=== PATIENT | male | born 1995 | race Caucasian/White ===

== ENCOUNTER 2019-02-20 09:33 | Emergency (ER) | payer BC, SELFPAY ==
[2019-02-20 09:34] VITALS: BP 114/79; PULSE 91; RESP 16; TEMP 36.7; O2SAT 100; BMI 19.1
--- NOTE | 2019-02-20 09:59 | ED.VISSUMM ---
- ER Visit Summary Date of Service: 02/20/19 Chief Complaint: [Left groin pain] History of Present Illness: The patient is a 23 M [resents to the emergency department with pain in his left groin is for about a week and a half ago. Patient rates his pain a 6 out of 10. Patient states that initially was mild and worse with certain movements but has now worsened. Patient denies any injury or trauma that he can recall. 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 He does not recall the exact time of injury. Patient states pain is worse with external rotation of his hip. Patient denies any urinary symptoms. Denies any fever. Denies any vomiting. He denies any lumps or masses.] Physical Examination: [HEENT-PERRLA, EOMI. Cranial nerves II through XII grossly intact. TMs clear. Mucous membranes moist. No adenopathy. Cardiovascular-regular rate and rhythm without murmur or ectopy Lungs-clear to auscultation, chest wall stable without crepitus or subcu emphysema Abdomen-normoactive bowel sounds, soft, nontender, no rebound or rigidity, no peritoneal signs. exam-circumcised male-testicles both descended and nontender. Normal cremasteric reflexes. No hernias palpated in the inguinal canal. Extremities-intact ?4, normal range of motion, normal pulses, atraumatic. Left groin-no soft tissue swellings or masses noted. No hernias noted. Patient does have some tenderness over the abductor tendons and over the area of the inguinal ligament that is mild. Patient has pain with external rotation at the hip.] Test Results: [None indicated] Emergency Department Course and Treatment: [Patient will be given a prescription for naproxen and referral to orthopedics for follow-up within next 5 to 7 days.] Treatment Plan: [Follow-up with orthopedics in 5 to 7 days.] Disposition: [Discharged home in stable condition] Impression: [Left groin strain] This note was generated with [employer] software. It may contain incorrect words, spelling, and punctuation that were not noted in review of the chart prior to signing ED Disposition - Plan for ED Patient: Referrals: [facility] Doctor,Out of [Primary Care Provider] -
--- NOTE | 2019-02-20 10:02 | ED.DEP ---
ED Disposition - Plan for ED Patient: Instructions: Groin Strain Prescriptions: Naproxen [Naprosyn] 500 mg PO BID PRN #20 tab Prescription Printed Referrals: [facility],Out of [Primary Care Provider] - Curt Figueroa DO [STAFF PHYSICIAN] - 5-7 Days
--- NOTE | 2019-02-20 10:03 | ED.DEP ---
ED Disposition - Plan for ED Patient: Instructions: Groin Strain Prescriptions: Naproxen [Naprosyn] 500 mg PO BID PRN #20 tab Prescription Printed Referrals: Curt Figueroa DO [STAFF PHYSICIAN] - 5-7 Days [facility] Doctor,Out of [Primary Care Provider] -
== END 2019-02-20 10:36 | disposition home or self-care (01) ==
LOC: ED 10:28
PROVIDERS: Emergency Provider Emergency Medicine
DX: S39.011A Strain of muscle, fascia and tendon of abdomen, initial encounter (principal); X58.XXXA Exposure to other specified factors, initial encounter; Y93.9 Activity, unspecified; Y92.9 Unspecified place or not applicable; Z87.891 Personal history of nicotine dependence
CPT/HCPCS: 99282

== ENCOUNTER → 2024-12-18 | Outpatient (CLI) | payer SELFPAY ==
[2024-12-18 18:49] LABS: Hematocrit 38.9 % (40-54); Hemoglobin 13.1 g/dL (13.0-16.5); Immature Granulocytes Count 0.010 X10^3/uL (0.0-0.0); Mean Corp Hgb Conc 33.7 g/dL (32-36); Mean Corpuscular Volume 90.9 fL (80-94); Mean Platelet Vol. 12.6 fl (6.2-12.0); NRBC Flagged by Analyzer 0 % (0-5); Platelet Count 189 K/mm3 (150-450); RBC Distribution Width CV 12.6 % (11.6-14.6); RBC Distribution Width SD 41.3 fl (35.1-43.9); Red Blood Count 4.28 M/mm3 (4.6-6.2); White Blood Count 6.2 K/mm3 (4.4-11.0)
[2024-12-18 19:01] LABS: PTHIN 37 pg/mL (11-61)
[2024-12-18 19:22] LABS: AST(SGOT) 24 U/L (<=37); Alanine Aminotransfer ALT/SGPT 6 U/L (<=46); Albumin, Serum 4.5 g/dL (3.5-5.0); Alkaline Phosphatase 91 U/L (40-129); Anion Gap 13 (5-15); BUN 10 mg/dL (4-19); BUN/Creat Ratio 10.8 RATIO (10-20); Bilirubin, Direct 0.39 mg/dL (0.00-0.30); Calcium 9.4 mg/dL (7.6-11.0); Calcium,Total 9.4 mg/dL (7.6-11.0); Carbon Dioxide 23.3 mmol/L (21.0-32.0); Chloride 102 mmol/L (98-108); Globulin 2.2 g/dL (2.2-4.2); Glucose 99 mg/dL (70-99); Potassium 4.4 mmol/L (3.3-5.1); Vitamin D,25 Hydroxy 43.2 ng/mL (30-100)
== END | disposition home or self-care (01) ==
LOC: MTLAB 16:02
PROVIDERS: Referring Provider Orthopaedic Surgery Sports Medicine; Visit Provider Orthopaedic Surgery Sports Medicine
DX: M84.321A Stress fracture, right humerus, initial encounter for fracture (principal)
CPT/HCPCS: 36415; 80053; 82248; 82306; 82310; 83970; 84075; 84080; 84100; 84402; 84403; 84443; 85025

== ENCOUNTER 2024-12-26 07:48 | Outpatient (CLI) | payer BC, SELFPAY ==
--- NOTE | 2024-12-26 08:00 | BD_ITS ---
EXAM: DEXA BONE DENSITY STUDY 12/26/2024 REASON FOR EXAM: ATYPICAL STRESS FRACTURE M,29 y/o atypical stress fracture. TECHNIQUE: DEXA BONE DENSITY STUDY COMPARISON: None FINDINGS: BMD and Z-SCORES Lumbar spine: 0.853 g/cm2, Z-Score -2.2 L1 through L4 Left femoral neck: 0.783 g/cm2, Z-Score -1.1 Femoral neck comparison data not recommended for monitoring change. Left total hip: 0.861 g/cm2, Z-Score -1.1 Right femoral neck: 0.804 g/cm2, Z-Score -0.9 Femoral neck comparison data not recommended for monitoring change. Right total hip: 0.840 g/cm2, Z-Score -1.3 BD/Dexa Bone Density Study IMPRESSION: Osteopenia. Recommend follow-up, if clinically warranted. Reading Location: [id number]
== END 2024-12-26 23:59 | disposition home or self-care (01) ==
LOC: OPBD 07:57
PROVIDERS: Referring Provider Orthopaedic Surgery Sports Medicine; Visit Provider Orthopaedic Surgery Sports Medicine
DX: M84.30XA Stress fracture, unspecified site, initial encounter for fracture (principal)
CPT/HCPCS: 77080